=== PATIENT | female | born 1990 | race American Indian/Alaskan Native ===

== ENCOUNTER 2018-07-03 14:36 | Outpatient (CLI) | payer BC | END 2018-07-03 14:37 | disposition home or self-care (01) | LOC: C.MRIC 14:36 ==

== ENCOUNTER 2018-07-25 05:54 | Day surgery (SDC) | payer BC ==
[2014-07-21 15:07] VITALS: BMI 26.6
[2018-07-25] MEDS ORDERED: ceFAZolin 1 gm in NS 2 GM/200 ML BAG IVPB ONE (07:34)
[2018-07-25] MEDS ORDERED: Propofol 10 mg/ml Inj (20 ML) ONE (07:45)
[2018-07-25] MEDS ORDERED: Midazolam 2 MG/2 ML VIAL ONE (07:46)
[2018-07-25] MEDS: HYDROmorphone 0.5 mg/0.5 ml ISec IVP PRN ×2 (11:40→11:52)
[2018-07-25] MEDS ORDERED: Ropivacaine 0.5% PF (20 ml) inj INJ ONE (12:26)
[2018-07-25 12:50] VITALS: O2SAT 97
[2018-07-25 13:13] VITALS: TEMP 98
--- NOTE | 2018-07-25 13:16 | PCM.ANESB2 ---
Popliteal Nerve Block - Popliteal Nerve Block Date of Procedure: 07/25/18 Anesthesiologist: Rosibel Pre-Procedure Diagnosis: s/p right ankle open syndesmotic fixation and ATFL repair Post-Procedure Diagnosis: same Procedure Performed: Popliteal Nerve Block Right - Procedure Popliteal Nerve Block: This procedure was explained to the patient that it is for post-operative pain management. Consent was obtained after a thorough discussion with the patient regarding the benefits and possible complications of local anesthetic block of the sciatic nerve at the popliteal level. The patient in PACU and standard monitors are applied. Time-out was held with the circulating nurse to confirm the appropriate block. After applying oxygen by nasal cannula, patient's operative leg was gently raised and supported and the groove in between the biceps femoris and vastus lateralis muscles was carefully palpated. The skin approximately 8cm above the popliteal crease was then marked. The ultrasound transducer was then applied to the posterior thigh approximately 8cm above the popliteal crease in the transverse plane and the sciatic nerve before its division was visualized lateral to the popliteal artery and in between the bicep femoris and semimembranosus/semitendinosus muscles. After identification, the lateral portion of the thigh was prepped with chloraprep. At this point, a # 21 gauge Stimuplex insulated 4 inch needle was inserted into pre-marked area and advanced in a perpendicular direction. The needle was inserted above the ultrasound transducer in-plane towards the sciatic nerve in a [id number] direction. Needle advancement was performed carefully under direct ultrasound visualization. After repeated negative aspiration, 2cc of 0.5% Ropivacaine was injected and this was flowed with 28cc of 0.5% Ropivacaine. Under ultrasound guidance the local anesthetics were observed surrounding sciatic nerve . The needle was removed intact and sterile dressing was applied. The patient tolerated the popliteal nerve block well with stable vital signs.
[2018-07-25 13:19] VITALS: BP 112/68; PULSE 68; RESP 13
--- NOTE | 2018-07-25 14:35 | RAD ---
INTRAOPERATIVE FLUOROSCOPY HISTORY: Right ankle fracture. TECHNIQUE/FINDINGS: Fluoroscopic guidance was provided by Radiology department. Please see operative report for full details. Eighteen images were provided. Total fluoroscopy time was 129.6 sec. IMPRESSION: As above
--- NOTE | 2018-07-25 18:39 | PCM.SURG1 ---
Surgeon's Initial Post Op Note - Surgeon's Notes Surgeon: Charlie Ritter MD Night Shift Supervisor: Jesús Tello PA-C Type of Anesthesia: General Endo Pre-Operative Diagnosis: Right ankle: #1 healed distal fibula old Diaz B fracture (06/2014). #2 ATFL chronic instability. #3 syndesmotic tear and instability Operative Findings: Right ankle: #1 healed distal fibula old Diaz B fracture (06/2014), stable and healed. 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 #3 syndesmotic tear and instability (grade 2 instability with widening syndesmosis). #4 multiple loose bodies tibio-talar joint. #5 signficant synovitis tibio-talar joint. #6 significant synovitis and debris talo-navicular joint Post-Operative Diagnosis: Right ankle: #1 healed distal fibula old Diaz B fracture (06/2014), stable and healed. 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 #3 syndesmotic tear and instability (grade 2 instability with widening syndesmosis). #4 multiple loose bodies tibio-talar joint. #5 signficant synovitis tibio-talar joint. #6 significant synovitis and debris talo-navicular joint Operation Performed: Right anle open : #1 syndesmotic repair/fixation. #2 ATFL primary repair (Brostrum procedure) w/ internal brace supplemental fixation/augmentation. #3 Arthrotomy tibio-talar joint and debridement/ extensive synovectomy. #4 Open tibio-talar joint removal Loose Bodies. #5 arthrotomy talo-navicular joint and debridement/ synovectomy. #6 placement in short leg cast Specimen/Specimens Removed: specimen= loose bodies sent to path. complications= none. tourniquet time= 90 min at 300 mmHg. Implants= Arthrex: #1 syndesmotic tight rope x2 w/ buttress 2-hole plate. #2 Swivel Lock anchor, biocomposite 4.75mm x1, 3.75mm x1 (internal brace anchors and fibertape). #3 Suture sid anchor, biocomposite, 2.4 mm x2, (Brostrum ATFL repair anchors) Estimated Blood Loss: EBL {In ML}: 30 Blood Products Given: N/A Drains Used: No Drains Post-Op Condition: Good Date of Surgery/Procedure: 07/25/18 Time of Surgery/Procedure: 11:00
--- NOTE | 2018-08-18 07:17 | OP ---
PROCEDURE DATE: 07/25/2018 PREOPERATIVE DIAGNOSES: Right ankle: 1. Healed distal fibula Diaz B fracture (06/2014). 2. 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 3. Syndesmotic tear and instability. 4. Possible tibiotalar joint significant synovitis. 5. Possible tibiotalar joint loose bodies. 6. Possible talonavicular joint significant synovitis. POSTOPERATIVE DIAGNOSES: Right ankle: 1. Healed, stable, distal fibula Diaz B fracture (06/2014) stable and confirmed healed on fluoroscopic dynamic imaging. 2. Anterior talofibular ligament grade III chronic instability. 3. Syndesmotic tear and instability (grade II to III instability with widening syndesmosis). 4. Multiple loose bodies, tibiotalar joint. 5. Significant synovitis, tibiotalar joint. 6. Significant synovitis, talonavicular joint. 7. Debris and intra-articular loose bodies, talonavicular joint. PROCEDURES: Right ankle, open: 1. Syndesmotic repair/fixation. 2. Anterior talofibular ligament repair (Brostrom procedure) with internal brace augmentation. 3. Arthrotomy of tibiotalar joint and open extensive synovectomy/debridement. 4. Open tibiotalar joint removal loose bodies. 5. Arthrotomy of talonavicular joint and extensive synovectomy/debridement. 6. Open talonavicular joint removal, multiple loose bodies and debris. 7. Placement in well-padded short leg cast with ankle in eversion. SURGEON: Charlie Ritter MD DOUBLER HELPER: Jesús Tello PA-C JUSTIFICATION FOR DOUBLER HELPER: Jesús Tello is a certified physician medical assistant supervisor whose skilled surgical service was an absolute necessity for successful completion of the procedure as he provided skilled surgical assistance with positioning of the patient, positioning of extremity, management of the surgical rock, retraction of neurovascular structures, surgical approach, placement of syndesmotic fixation hardware including two syndesmotic TightRope fixation devices and 2-hole Buttress plate, ATFL primary repair/Brostrom procedure with placement of internal brace augmentation including passage of suture and placement of all four anchors for the ATFL stabilization, arthrotomy and open treatment tibiotalar joint, arthrotomy and open treatment talonavicular joint, wound closure, placement of well-padded short leg cast. Emaus Omer was present for the entire case and was an absolute necessity for successful completion of the procedure. SPECIMENS: Multiple loose bodies from tibiotalar joint and talonavicular joint sent to Pathology, inflamed synovial lining from tibiotalar joint and talonavicular joint sent to Pathology. COMPLICATIONS: None. TOURNIQUET TIME: 90 minutes at 300 mmHg. IMPLANTS: Arthrex: 1. Syndesmotic TightRope fixation devices x2 with a 2-hole lateral Buttress plate. 2. BioComposite SwiveLock anchors: 4.75-mm sized anchor x1, 3.75-mm sized anchor x1 with associated FiberTape suture at the two internal brace anchors, 4.75-mm anchor placed in talus and 3.75-mm anchor placed in distal fibula. 3. SutureTak anchors, BioComposite, 2.4-mm size x2 (used for ATFL repair/Brostrom), anchors placed at distal fibula. ESTIMATED BLOOD LOSS: 30 mL. DRAINS: None. DISPOSITION: The patient was extubated and transferred to PACU in stable condition and tolerated the procedure well. INDICATIONS FOR SURGERY: The patient is a 28-year-old female with past medical history significant for anxiety, depression who presented to the office originally under my care at another practice in 06/2014, [facility]. The original cause for her right ankle pain and instability originated with an injury on 07/11/2014. On 07/11/2014, she states that she was walking outside and slipped and fell on the ice resulting in an immediate 10/10 pain, localized to the right ankle and inability to weight bear. She went to the Emergency Room at [facility] and after review of imaging,she was diagnosed with an ankle fracture, she was placed in a posterior and U splint and instructed to follow up with an orthopedic surgeon as an outpatient. Evaluation in my office confirmed the diagnosis of a minimally displaced Diaz B fracture and questionable syndesmotic involvement. She was scheduled for examination under anesthesia at [facility] on 07/23/2014. After she was placed under general anesthesia, the examination under anesthesia and fluoroscopic imaging was carried out. The distal fibular fracture was examined closely and was confirmed to be a Diaz B fracture. External rotation stress was applied, and the Diaz B fracture appeared to be stable with no medial or syndesmotic widening apparent. Once a stable Diaz B fracture pattern was confirmed, she was treated with a closed reduction under anesthesia of the distal fibular fracture. Postreduction fluoroscopic imaging confirmed improved alignment and good outcome from the closed reduction. A well-padded short leg cast was placed with a good mold. She followed at my office and over the course of the following three months, she was advanced to fracture boot after four weeks and continued forward progress and working with physical therapy. At the end of four months postprocedure, she was back to normal ambulation with an active ankle brace. 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 The increased period of standing resulted in worsening pain and instability. Finally, she showed up for evaluation and treatment on 11/12/2017. X-rays in the office confirmed that the Diaz B fracture did heal completely with no residual instability seen at the fracture. External rotation stress examination under x-ray was positive for syndesmotic instability. Talar tilt examination was also positive, and she had 2 to 3+ anterior drawer. At that point in time, she was given a lace up ankle brace and instructed to start physical therapy and regain her strength, and discussion of possible surgical intervention was carried out about main stay of treatment at that point in time had to be conservative treatment. She underwent MRI of the right ankle at [facility] on 11/28/2017 which was read as: 1. Productive change at the level of the distal fibula at the site of the old fracture with some interval healing noted. Some residual signal noted at the fracture site which corresponds with some sclerosis noted on the plain x-ray of the fracture margin. More distally, there are some subchondral cysts formation at the fracture site measuring up to 3 to 4 mm. 2. Mild tenosynovitis, posterior tibial tendon sheath. 3. Some thickening and fraying at the level of the anterior tibiofibular ligament/syndesmosis suggested for some chronic partial tearing with superimposed fibrosis. 4. Thinning and attenuation of the anterior talofibular ligament also suggested for some chronic partial tearing. 5. Mild degenerative changes noted at the talonavicular joint space. At her followup in the office, I reviewed her MRI findings with her at length and discussed treatment options including fracture boot immobilization and physical therapy versus Max conservative treatment plan including immobilization and a short leg cast for 4 weeks nonweightbearing, followed by fracture boot nonweightbearing for 4 weeks, followed by fracture boot and progressive weightbearing with referral to physical therapy four weeks later After answering all her questions, she decided that she would like to continue the lace up ankle brace and work with physical therapy as well as home exercise program to restore stability and strength to her ankle. After approximately six months, she showed up to her appointment and review of how she was progressing as well as physical examination yielded worsening presentation. She had constant 9/10 lateral ankle pain along the region of the ATFL as well as pain localized to the lateral gutter of the ankle joint most likely representing significant synovitis. She also had grade III anterior drawer which had worsened/ progressed from her previous exam. She stated that she had multiple episodes of twisting and giving way over the past few months and feels that her ankle is getting worse. She also had pain localized to the distal tib-fib along the syndesmosis anteriorly. External rotation stress exam showed worsening syndesmotic widening/instability. This time due to her worsening presentation and negative impact on her quality of life, we discussed surgical intervention, especially with the worsening syndesmotic widening/instability which was now grade 2-3. She was indicated for surgery right ankle: open syndesmotic repair/fixation, ATFL repair/Brostrom procedure with internal brace augmentation, arthrotomy tibiotalar joint and debridement/extensive synovectomy, open tibiotalar joint removal loose bodies, arthrotomy talonavicular joint and extensive synovectomy/debridement, open talonavicular joint removal loose bodies, and placement in a short leg cast as well as all indicated surgical procedures on the right ankle. After answering all the questions about surgical plan and diagnosis, she stated that she had a good understanding. She wants surgical animation videos and diagnosis animation videos at length and stated that she had a good understanding of her diagnosis as well as the procedure to be done. We discussed the risks, benefits, alternatives to the procedure with the risks including but not limited to infection, neurovascular damage, iatrogenic injury including fracture, failure of hardware, pull-out of anchors, worsening loosening and return of instability, need for further surgery, inability to return to preinjury level of activity, development of chronic pain and disability, development of blood clots including DVT and PE, anesthesia reactions including . After answering all her questions, she stated that she understood the risks and wished to proceed with the surgery. She was referred to her primary care physician for her preoperative medical evaluation and PATs. She was able to undergo both without difficulty with her primary care physician and medical clearance was obtained. She was referred for a repeat right ankle MRI which was done at [facility] on 07/03/2018 and read as: 1. Partial tears or sprains of anterior talofibular and anterior tibiofibular ligaments. 2. No definite fracture or bone contusion identified. 3. No tendon tear appreciated throughout the exam as well. 4. No definite complete ligament tear appreciated throughout. On my review of the MRI, I felt that the MRI read was rather vague and should have been compared to the previous MRI. I did have a discussion with the musculoskeletal radiologist who assured me that an addendum would be added as a result of our discussion highlighting what he believed and agreed should have been added to the MRI report: On my review of the MRI and consulting the musculoskeletal radiologist, there was significant syndesmotic ligament signal change both posterior and anterior fibers. The anterior fibers were much worse and at some point, you can see where some of the fibers completely detached from the fibula. When compared to the previous MRI, this was significantly worse. The ATFL exhibited significant attenuation and buckling of the ligament fibers confirming at the very least significant attenuation and stretched out ligament fibers. The deltoid ligament appeared intact. The tibiotalar joint and talonavicular joint suspected synovitis, and loose bodies were still present/debris. The posterior tibial tendon tenosynovitis seen in the first MRI did not appear to be present during this MRI. The MRI findings were discussed at length with the patient, and I reviewed with her the worsening presentation. She was already indicative for surgery and had accepted the risks and had a good understanding of the procedure, and we continued with scheduling. She was scheduled for surgery at [facility] on 07/25/2018. PROCEDURE IN DETAIL: Patient was identified in the preoperative holding area and the right ankle was marked for surgery. Once again as described above the risks, benefits, alternatives of surgery were discussed at length with the patient with all questions answered, informed consent was finalized and obtained. After a brief discussion with anesthesia staff, the patient was taken to the operating room and placed on a well-padded operating room table with a radiolucent lower extremity extension and all bony prominences and superficial neurovascular structures well padded. An initial timeout was done with the surgeon, anesthesia staff, OR staff on an agreement with the patient, procedure being done and extremity be operated on. General anesthesia was administered with difficulty or complication. Examination under anesthesia and fluoroscopy was then carried out. EXAMINATION UNDER ANESTHESIA and FLUOROSCOPY: Right ankle with no swelling, no warmth, no erythema, no deformity, skin intact. There was 3+ anterior drawer with soft endpoint, 1+ talar tilt with firm endpoint, negative medial talar tilt. Full range of motion compared to contralateral ankle. Examination under fluoroscopy: Dynamic fluoroscopic imaging with the ankle joint at 90/neutral was taken and the mortise view while an external rotation stress was applied. Pre-and post stress images were taken as well as dynamic live imaging. There was significant syndesmotic and medial widening with external rotation stress performed under x- ray confirming significant syndesmotic instability. During the stress examination under fluoroscopy and anesthesia, the distal fibula fracture was also carefully examined and observed for any aberrant movement. The distal fibula fracture was determined to be healed and stable as an old Diaz B fracture treated with closed reduction and casting in 2015. Continuation of procedure: Tourniquet was placed high on the right thigh and inflated for a total tourniquet time of 90 minutes at 250 mmHg after exsanguination of right lower extremity. Right lower extremity was prepped and draped in standard sterile fashion. A final timeout was done with the surgeon, anesthesia staff, OR staff: Agreement with the patient, procedure being done and extremity be operated on. Right lower extremity was exsanguinated and the tourniquet was inflated set to 250 mmHg. Due to the proximity of the incision for a syndesmotic repair and the incision for a ATFL repair, there was minimal distance between the distal aspect of one incision and the proximal aspect of the other incision and I did not want to change the surgical approach for either part of the procedure as incisions in the same plane as Langerhans lines tend to heal better. Decision was made to join the 2 incisions as one long incision starting at the syndesmotic repair aspect and down to the distal aspect of the ATFL curvilinear incision. Incision was started at the posterior aspect of the distal fibula so that the wound would not be closed directly over the syndesmotic buttons and buttress plate. Incision was placed just posterior to the distal fibula over the peroneal tendons. Incision made to skin and subcu to maintain good hemostasis. Peroneal fascia was identified and the anterior aspect of the peroneal fascia was found with blunt dissection. Peroneal tendons were retracted successfully posteriorly to allow access to the lateral aspect of the distal fibula. The anterior portion of the incision was then elevated and brought forward with retractors allowing access to the anterior aspect of the distal fibula as well. OPEN SYNDESMOTIC REPAIR/FIXATION: Fluoroscopic imaging was taken to confirm the level of the proposed tight rope placement, the fixation hardware that would be placed for the syndesmotic repair/fixation. Approximately 1 cm to 1.5 cm proximal to the level of the tibiotalar joint we marked out placement for the distal syndesmotic tight rope. 1 cm proximal to that would be the proximal syndesmotic tight rope. A 2-hole buttress plate from Arthrex was selected and pinned into position with these 2 levels exiting the 2 holes at the 2 hole buttress plate. With the plate pinned in position attention was then turned towards placement and creation of the tunnel for the distal syndesmotic tight rope fixation. A large periarticular reduction clamp was placed to allow reduction of the syndesmosis while applying pressure to the distal fibula and the distal tibia. A small stab incision was made just over the medial malleolus tip allowing for safe placement of the sharp edge of the periarticular reduction clamp on the medial malleolus. The lateral malleolus was accessed through the laterally based surgical incision and the reduction pressure across the syndesmosis was applied and the periarticular clamp locked in position. Biplanar fluoroscopic imaging confirmed good placement of the periarticular clamp as well as maintenance of the syndesmotic reduction. Dynamic imaging was taken with repeat external rotation stress applied and there was no significant syndesmotic widening seen as the periarticular reduction clamp was maintaining a good reduction of the syndesmosis. The guidewire for the distal tight rope syndesmotic fixation device was then placed with a 20 posterior to anterior inclination level with the horizontal plane of the tibiotalar joint/parallel to the tibiotalar joint, placed through all 4 cortexes being the near fibula, far fibular cortex, near/lateral tibia cortex and exiting the far/medial tibial cortex. The position of the guidewire was confirmed to be optimal, approximately 1 cm to 1.5 cm proximal to the level of the tibiotalar joint and placed parallel to the tibiotalar joint with 20 posterior to anterior inclination. The cannulated drill was then passed over the guidewire through all 4 cortexes. The guidewire and the cannulated drill were removed and the tight rope was then passed through all 4 cortexes on the special handle. Once the medial tight rope button was seen exiting the medial cortex of the distal tibia it was released and flipped into position with no interposed soft tissue seen in a good position. The lateral tight rope button was then advanced and the tight rope suture was cinched down. The lateral tight rope button was then well seated in the distal hole of the 2 hole buttress plate. Final tightening was carried out of the syndesmotic tight rope and attention was then turned towards placing the proximal tight rope button. The above steps were repeated once again for placement of the proximal tight rope syndesmotic fixation device. The only difference between placement of the distal and proximal tight rope syndesmotic fixation devices is that the proximal one is placed with less posterior to anterior inclination, more towards neutral/parallel to the horizontal plane-coronal plane. Guidewire was passed and confirmed with biplanar fluoroscopic imaging to be in a good position through all 4 cortexes. Cannulated drill was passed. The tight rope button was delivered and flipped on the medial cortex with no interposed soft tissue confirmed to be present. The lateral button was then advanced and cinched, placed nicely into the proximal hole of the buttress plate. Final tightening on both lateral tight rope buttons was carried out and the large periarticular reduction clamp was removed. Biplanar fluoroscopic imaging was then taken to confirm good placement of the syndesmotic fixation and the buttress plate. Dynamic fluoroscopic imaging was then taken with repeat external rotation stress carried out revealing lutheran of syndesmotic stability with no evidence of any syndesmotic residual widening or any evidence of syndesmotic instability. Attention was then turned towards the anterior talofibular ligament repair. OPEN ATFL REPAIR WITH INTERNAL BRACE AUGMENTATION: The incision utilized for the syndesmotic repair/fixation was expanded distally in a curvilinear fashion directly over the ATFL. Incision was carried out through skin down some stance tissue down to the level of the extensor retinaculum and peroneal retinaculum. The anterior aspect of the peroneal retinaculum was sharply incised. The distal fibula was exposed in its entirety with the proximal attachment fibers of the ATFL identified. The anterior aspect of the peroneal retinaculum was sharply incised allowing access to the full length of the ATFL fibers. The goal of ATFL repair surgery in the setting of chronic instability is to tighten and stabilize the ATFL. Under the current conditions of chronic instability, the ATFL fibers are not completely torn but they are attenuated/stretched out in this situation. The proximal insertion fibers of the ATFL were then released from the distal fibula and tagged for future repair. This allowed us to have access to the anterior/lateral aspect of the tibiotalar joint. The ATFL deep fibers makeup part of the capsule as well at the lateral aspect of the tibiotalar/ankle joint. ARTHROTOMY ANKLE JOINT AND OPEN EXTENSIVE SYNOVECTOMY AND REMOVAL MULTIPLE LOOSE BODIES: On my review of the MRI, I felt that there was signal change within the ankle joint itself with questionable debris and loose bodies present. I have discussed these findings with the patient and she agreed to incorporate arthrotomy tibiotalar joint and evaluation with synovectomy and removal loose bodies as indicated. The arthrotomy from the ATFL release at the anterior lateral aspect of the tibiotalar joint was expanded more proximal allowing for full access to the lateral aspect of the tibiotalar joint. After a little bit of irrigation it was confirmed that there was significant debris and small loose bodies throughout the tibiotalar joint was copiously irrigated and the loose bodies were successfully removed. Evaluation of the lateral gutter from the intra-articular point of view revealed significant synovitis at the ankle joint. While maintaining good hemostasis, an extensive open synovectomy was carried out resecting all of the inflamed synovial lining present most likely behaving as a significant pain generator for the patient contributing to her overall presentation. With the use of the Bovie, the open extensive synovectomy was carried out while maintaining good hemostasis. The chondral surface of the distal tibia and the talus were carefully evaluated and there was no evidence of osteochondral lesion on either aspect. Once the extensive synovectomy was completed and there did not appear to be any more loose bodies present, the ankle joint was copiously irrigated with 1000 cc normal saline. Final specimens were obtained including multiple small loose body fragments and the intra-articular hypertrophic inflamed synovial lining and capsule. The capsule was then reapproximated with #1 Vicryl suture down to the level of the ATFL detachment from the distal fibula. We then continued back to the ATFL repair. CONTINUATION OF OPEN ATFL REPAIR WITH INTERNAL BRACE AUGMENTATION: The talar attachment of the ATFL was identified and confirmed. Placement for the distal swivel lock anchor for the internal brace was confirmed at the distal lateral talus with care taken not to penetrate the talar neck or articular surface talar dome. With the help of biplanar fluoroscopic imaging the pilot submersible hole for the 4.75 bio composite swivel lock anchor was drilled and the path for the anchor tapped with a 4 mm tap, and the 4.75 mm swivel lock anchor was placed with good bony fixation achieved. The swivel lock anchor was double loaded with 2 fiber tape sutures that were retracted and kept out of the surgical field anteriorly. We then turned our attention to the Brostrm procedure/repair and tightening-plication ATFL fibers. The ATFL was identified and evaluated. Indeed the fibers appeared to be significantly attenuated and the proximal fibers were brought back to the distal fibula. The tension in the fibers was only sensed after approximately 1 cm overlap of the ATFL over the distal fibula. This was the amount of length that needed to be doubled over or tightened up. To 2.4 mm bio composite mini suture tack anchors from [employer] were then selected. A 2 mm drill was used to create the pilot submersible hole at the distal fibula for placement of the suture tack double loaded anchors. One anchor was placed at the anterior aspect of the ATFL insertion and one anchor was placed at the posterior aspect of the ATFL insertion leaving room for the fourth anchor/second swivel lock anchor to be placed in the middle providing the stability of augmentation with the internal brace fiber tape suture. The fiber tape suture would be suspended between the 2 swivel lock anchors, one at the talus and one at the distal fibula. The fiber tape suture will be placed over the newly tightened up ATFL/superficial to the repaired ATFL. The suture tack anchors were each double loaded. The suture from the anterior anchor was passed through the anterior fibers of the ATFL and the middle proximal fibers of the ATFL attempting to maintain 1 cm plication and shortening of the ATFL. 2 horizontal mattress suture configurations were created with the 4 limbs of suture from the double loaded anchor. The steps were then repeated after placement of the posterior suture tack anchor and the posterior ATFL fibers as well as middle ATFL fibers were stabilized with horizontal mattress sutures from the 4 limbs of FiberWire suture with 1 cm of shortening created on purpose. The ATFL was tightened after the sutures were tied down, this was all done with the ankle at 90 and eversion to close down the distance of the ATFL as well. Once the sutures were tied down successfully the ATFL was tested and indeed the Brostrm procedure was successful with resulting negative anterior drawer and negative talar tilt. We then proceeded with placement of the internal brace augmentation. The fiber tape suture from the distal swivel lock anchor was then brought over the [place] ATFL and proximal swivel lock anchor placement was identified at the distal fibula care home between the anterior and the posterior suture tack anchors. The pilot submersible hole for the swivel lock was created and a 4 mm tap was used to allow for safe placement of the bio composite 4.75 mm swivel lock anchor from [employer]. We were ready for placement of the anchor and tension of the fiber tape placed over the ATFL was maintained/achieved. The proximal swivel lock anchor was then placed into position while my medical assistant supervisor maintained the tension on the internal brace/fiber tape suture. The proximal swivel lock anchor was placed to completion with good bony fixation achieved. The fiber tape was under good tension providing secondary stability to the construct as an internal brace sitting directly over the middle fibers of the ATFL. Again the stability of the ATFL was tested once again, indeed successful Brostrm/repair of the ATFL with placement of internal brace had resulted in lutheran of ATFL stability with negative anterior drawer and negative lateral talar tilt resulting. ARTHROTOMY TALONAVICULAR JOINT AND OPEN SYNOVECTOMY AND DEBRIDEMENT WITH REMOVAL LOOSE BODIES (SEPARATE PART OF PROCEDURE): On my review of the MRI, I also noted significant signal change intra-articular talonavicular joint with questionable debris. After discussing the findings with the patient, she agreed to small arthrotomy and evaluation of the talonavicular joint. Through our surgical approach to the syndesmosis and ATFL repair we had easy access to the lateral aspect of the talonavicular joint. Small 2 cm incision was made at the lateral aspect of the talonavicular capsule and with retractors in place we evaluated the talonavicular joint. Indeed there appeared to be significant synovitis taking over the entire joint and debride/small loose bodies. With use of normal saline, the talonavicular joint was copiously irrigated through the lateral arthrotomy. As much as possible without a wide exposure, an open extensive synovectomy was carried out while maintaining good hemostasis and acquiring specimen. Once the synovectomy was completed and it was felt that all of the loose bodies and debris had been removed, the talonavicular joint was copiously irrigated with 1000 cc of normal saline once again. #1 Vicryl suture was used to repair/reapproximate the talonavicular lateral capsule from the arthrotomy. Once the capsule was repaired we then turned our attention to the main surgical wound again. The wound was copiously irrigated. Final biplanar fluoroscopic imaging was taken confirming the syndesmotic hardware placement, placement of anchors at the talus and distal fibula, and overall ankle images. Dynamic fluoroscopy was used to test the stability achieved from the syndesmotic repair and ATFL repair. External rotation test was performed with no residual syndesmotic or medial widening observed. With the use of a lobster claw clamp a cotton test was performed, a cotton test was negative with no syndesmotic motion observed. To test ATFL repair: Lateral talar tilt test and anterior drawer test were performed under dynamic fluoroscopic imaging. Negative Talar tilt and negative anterior drawer were observed. Wound closure was then carried out with #1 Vicryl suture for deep tissue followed by two-point 0 Vicryl suture for subcutaneous tissue followed by anel for skin. Sterile dressings were applied to the wound, sterile cast padding was then applied from the toes up to the tibial tuberosity. This was followed by placement of a well-padded short leg cast with the ankle joint and 90 neutral position and eversion. Once the cast hardened, the patient was extubated from general anesthesia and transferred to PAC in stable condition and tolerated procedure well. Justification for billing and coding: #1 open syndesmotic repair/fixation was carried out successfully and therefore was coded and billed as CPT 34934. #2 Open ATFL repair/reconstruction/Brostrom procedure was carried out successfully with internal brace augmentation and coded and billed as CPT 10152. #3 arthrotomy of tibiotalar joint with open extensive synovectomy and debridement was carried out successfully and therefore was coded and billed as CPT 96103. 4. Open tibiotalar joint removal of multiple loose bodies was also carried out as an independent part of the procedure and therefore coded and billed as CPT 63318. #5 open talonavicular joint/arthrotomy with extensive synovectomy/debridement was carried out and therefore was coded and billed as CPT 88235 #6 open talonavicular joint/ arthrotomy with removal loose bodies was carried out successfully as a separate part of the procedure and therefore was coded and billed as CPT code 28244. #7 at the end of the procedure, it is usual and customary to be immobilized in a posterior splint or placed in DME such as a fracture boot, to maximize patient compliance and outcome of the surgery, the patient was placed in a well-padded short leg cast with an appropriate syndesmotic and ATFL repair mold placed, the cast was subsequently bivalved in PACU prior to DC home. This required dedicated surgical time beyond what is usual and customary and therefore was coded and billed as CPT [id number]. DISPOSITION: She will be discharged home when she is recovered from anesthesia. She is to be strict nonweightbearing to the right lower extremity. She was given a prescription for Percocet for pain control. She was given a prescription for Lovenox for DVT prophylaxis starting postoperative day #1, once daily injection for 2 weeks postop. She will contact me directly with any questions or concerns. She is to follow- up in my office within 1 week after surgery and already has her postop appointment set up. Charlie Ritter MD [facility]
== END 2018-07-25 14:34 | disposition home or self-care (01) ==
LOC: C.SDS 05:54
PROVIDERS: ATTEND Student in an Organized Health Care Education/Training Program
DX: M25.371 Other instability, right ankle (principal); S82.831D Other fracture of upper and lower end of right fibula, subsequent encounter for closed fracture with routine healing; W00.0XXA Fall on same level due to ice and snow, initial encounter; M65.9 Synovitis and tenosynovitis, unspecified
CPT/HCPCS: 11011; 27610; 27829; 97116; 97161; C1713; G8978; G8979; G8980; J0690; J1170; J2250; J2405; J2704; J3010; J7120